=== PATIENT | male | born 1965 | race Caucasian/White ===

== ENCOUNTER 2019-09-14 00:07 | Emergency (ER) | payer BC, OTHER ==
[2019-09-14] MEDS ORDERED: Acetaminophen 325 MG Tab PO ONE (01:04)
[2019-09-14] MEDS ORDERED: Bacitracin/Neomycin/Polymyxin B Oint 0.9 GM U/D Packet TOP ONE (01:04)
--- NOTE | 2019-09-14 01:08 | EDM.PDOC ---
ED HPI GENERAL MEDICAL PROBLEM - General Chief Complaint: Upper Extremity Injury/Pain Stated Complaint: crush injury of middle finger Time Seen by Provider: 09/14/19 00:35 Source of Information: Reports: Patient History Limitations: Reports: No Limitations - History of Present Illness INITIAL COMMENTS - FREE TEXT/NARRATIVE: Patient comes to ER from [facility] after getting right middle finger crushed at work. Minor involvement of 4th digit also. Reports bruising/pain/swelling of distal 3rd finger as main complaint. No numbness. No deformity. No laceration/ bleeding. Treatments [employer]: Reports: Cold Therapy - Related Data Allergies Allergy/AdvReac Type Severity Reaction Status Date / Time No Known Drug Allergies Allergy Cannot Verified 09/14/19 00:09 Remember Home Meds: Home Meds ALPRAZolam [Alprazolam] 0.5 mg PO TID PRN 06/15/14 [History] Metoprolol Succinate [Toprol XL 50mg] 50 mg PO DAILY 06/15/14 [History] PARoxetine [Paxil] 20 mg PO DAILY 03/27/19 [History] Triamcinolone Acetonide [Triamcinolone Acetonide 0.1% Crm] 1 applic TOP ASDIRECTED PRN 03/27/19 [History] gemfibroziL [Gemfibrozil] 600 mg PO BID 03/27/19 [History] Past Medical History HEENT History: Reports: None Cardiovascular History: Reports: High Cholesterol, Hypertension Respiratory History: Reports: None Gastrointestinal History: Reports: Hemorrhoids Genitourinary History: Reports: None Musculoskeletal History: Reports: None Neurological History: Reports: None Psychiatric History: Reports: None Endocrine/Metabolic History: Reports: None Hematologic History: Reports: None Immunologic History: Reports: None Oncologic (Cancer) History: Reports: None Dermatologic History: Reports: None - Infectious Disease History Infectious Disease History: Reports: None - Past Surgical History HEENT Surgical History: Reports: Tonsillectomy Cardiovascular Surgical History: Reports: None Respiratory Surgical History: Reports: None GI Surgical History: Reports: Colonoscopy Male Surgical History: Reports: Vasectomy Endocrine Surgical History: Reports: None Neurological Surgical History: Reports: None Musculoskeletal Surgical History: Reports: None Dermatological Surgical History: Reports: None Social & Family History - Family History Family Medical History: Noncontributory - Tobacco Use Smoking Status *Q: Current Every Day Smoker Years of Tobacco use: 30 Packs/Tins Daily: 1 Used Tobacco, but Quit: No Second Hand Smoke Exposure: Yes - Caffeine Use Caffeine Use: Reports: Coffee, Soda - Recreational Drug Use Recreational Drug Use: No - Living Situation & Occupation Living situation: Reports: , with Family Occupation: Employed Review of Systems - Review of Systems Review Of Systems: See Below Musculoskeletal: Reports: Other (finger pain) Skin: Reports: Bruising ED EXAM, GENERAL - Physical Exam Exam: See Below Exam Limited By: No Limitations General Appearance: Alert, WD/WN, No Apparent Distress Eye Exam: Bilateral Eye: EOMI, PERRL Throat/Mouth: Normal Voice Head: Atraumatic, Normocephalic Neck: Supple Respiratory/Chest: No Respiratory Distress Extremities: Other (right hand: Bruising and subungual hematoma noted distal phalanx of middle finger. Tendon function appears intact. Nail intact. Skin intact. Tender around distal phalanx. Nontender proximally. Other fingers/ palm non-tender. Vascularly intact. ) Neurological: Alert, Oriented, Normal Cognition, Normal Gait Psychiatric: Normal Affect, Normal Mood Skin Exam: Warm, Dry, Ecchymosis ED TRAUMA EXTREMITY PROCEDURES - Additional/Other Procedure(s) Other (Free Text) Procedure(s): Electrocautery used to treat subungual hematoma of right middle finger. Single hole made and hematoma evacuated. Patient felt improvement in pain afterwards. Course - Vital Signs Last Recorded V/S: Last Vital Signs Temp 36.7 C 09/14/19 00:15 Pulse 83 09/14/19 00:15 Resp 18 09/14/19 00:15 BP 151/94 H 09/14/19 00:15 Pulse Ox 97 09/14/19 00:15 - Orders/Labs/Meds Orders: Active Orders 24 hr Category Date Time Status Fingers Fourth Digit Rt F8 [CR] Stat Exams 09/14/19 00:19 Ordered Fingers Third Digit Rt F7 [CR] Stat Exams 09/14/19 00:18 Taken Meds: Medications Discontinued Medications Generic Name Dose Route Start Last Admin Trade Name Freq PRN Reason Stop Dose Admin Acetaminophen 650 mg 09/14/19 01:04 09/14/19 01:08 Tylenol PO 09/14/19 01:05 650 mg NOW ONE Administration Neomycin/Polymyxin/Bacitracin 1 each 09/14/19 01:04 09/14/19 01:08 Triple Antibiotic Oint TOP 09/14/19 01:05 1 each ONETIME ONE Administration - Radiology Interpretation Free Text/Narrative:: Xray shows fracture of distal phalanx 3rd finger - Re-Assessments/Exams Free Text/Narrative Re-Assessment/Exam: Fracture confirmed by xray. Closed fracture. Subungual hematoma released using electrocautery. Antibiotic applied over evacuation point/bandaged. Finger splinted for protection. BP elevated at time of arrival, suspect elevation in large part due to pain from injury. Patient is to follow up with primary for BP recheck and as needed for the finger injury. He is to wear the protective splint for 3-4 weeks unless instructed to do otherwise during follow up. Departure - Departure Time of Disposition: 01:04 Disposition: Home, Self-Care 01 Condition: Good Clinical Impression: Crushing injury of finger of right hand Subungual hematoma of finger Qualifiers: Encounter type: initial encounter Qualified Code(s): S60.10XA - Contusion of unspecified finger with damage to nail, initial encounter - Discharge Information *PRESCRIPTION DRUG MONITORING PROGRAM REVIEWED*: Not Applicable *COPY OF PRESCRIPTION DRUG MONITORING REPORT IN PATIENT MEGAN: Not Applicable Instructions: Subungual Hematoma, [id number], Finger Fracture, Adult, Easy-to -Read Referrals: Mariam Lopez MD [Primary Care Provider] - Forms: ED Department Discharge Additional Instructions: Wound care as discussed. Wear protective splint on broken finger to help protect it from additional trauma/irritation. Follow up as needed if any additional problems develop or if further work restrictions needed. Sepsis Event Note - Evaluation Sepsis Screening Result: No Definite Risk - Focused Exam Vital Signs: Vital Signs Temp Pulse Resp BP Pulse Ox 09/14/19 00:15 36.7 C 83 18 151/94 H 97 Date Exam was Performed: 09/14/19 Time Exam was Performed: 01:15 - My Orders Last 24 Hours: My Active Orders 09/14/19 00:18 Fingers Third Digit Rt F7 [CR] Stat 09/14/19 00:19 Fingers Fourth Digit Rt F8 [CR] Stat - Assessment/Plan Last 24 Hours: My Active Orders 09/14/19 00:18 Fingers Third Digit Rt F7 [CR] Stat 09/14/19 00:19 Fingers Fourth Digit Rt F8 [CR] Stat
== END 2019-09-14 01:20 | disposition home or self-care (01) ==
LOC: LL.ED 00:07
DX: S67.192A Crushing injury of right middle finger, initial encounter (principal); S60.131A Contusion of right middle finger with damage to nail, initial encounter; I10 Essential (primary) hypertension; E78.00 Pure hypercholesterolemia, unspecified; F17.210 Nicotine dependence, cigarettes, uncomplicated; Z79.899 Other long term (current) drug therapy; W31.9XXA Contact with unspecified machinery, initial encounter; Y92.89 Other specified places as the place of occurrence of the external cause; Y99.0 Civilian activity done for income or pay
CPT/HCPCS: 11740; 73140; 99283; A9270